=== PATIENT | male | born 1985 | race Caucasian/White ===

== ENCOUNTER 2021-05-01 19:44 | Emergency (ER) | payer BC, MEDICAID ==
[~2021-05-01] VITALS: Ht 172.7 cm; Wt 77.1 kg
[2021-05-01] MEDS ORDERED: OLANZAPINE 5 MG TABLET PO ONE (20:30)
[2021-05-01] MEDS ORDERED: LORAZEPAM 1 MG TABLET ONE (20:30)
[2021-05-01] MEDS ORDERED: LORAZEPAM 1 MG TABLET PO ONE (20:30)
[2021-05-01] MEDS ORDERED: OLANZAPINE 5 MG TABLET ONE (20:30)
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
[2021-05-01 20:42] LABS: BASOPHILS # (AUTO) 0.1 K/uL (0.0-0.2); BASOPHILS % (AUTO) 1.1 % (0.0-2.0); HEMATOCRIT 42 % (39-51); HEMOGLOBIN 14.3 g/dL (13.5-17.5); LYMPHOCYTES # (AUTO) 2.2 K/uL (0.8-4.8); LYMPHOCYTES % (AUTO) 27.3 % (20.0-44.0); MEAN CORPUSCULAR HGB CONC 34 g/dl (31.0-36.0); MEAN CORPUSCULAR VOLUME 87 fL (80-96); MONOCYTES # (AUTO) 0.8 K/uL (0.1-1.30); MONOCYTES % (AUTO) 9.3 % (2.0-12.0); NEUTROPHILS # (AUTO) 4.9 K/uL (1.8-8.9); NEUTROPHILS % (AUTO) 60.3 % (43.0-81.0); PLATELET COUNT (AUTO) 366 K/uL (150-450); RED BLOOD CELL COUNT(AUTO) 4.82 MIL/uL (4.5-6.0); WHITE BLOOD COUNT (AUTO) 8.1 K/uL (4.3-11.0)
[2021-05-01] MEDS ORDERED: diphenhydrAMINE HCL 50 MG/ML VIAL ONE (20:42)
[2021-05-01] MEDS ORDERED: HALOPERIDOL LACTATE INJ 5 MG/ML VIAL ONE ×2 (20:42→23:40)
[2021-05-01 20:45] LABS: BILIRUBIN,URINE Negative (NEGATIVE); COLOR,URINE YELLOW (YELLOW); LEUKOCYTE ESTERASE ,URINE Negative (NEGATIVE); NITRITE, URINE Negative (NEGATIVE); PH,URINE 5.5 (5.0-8.0); PROTEIN,URINE Negative (NEGATIVE); UGLUCOSE Negative (NEGATIVE); UROBILINOGEN,URINE 0.2 EU/dL (0.2)
[2021-05-01 20:48] LABS: CALCIUM, SERUM 8.9 mg/dL (8.5-10.1); CARBON DIOXIDE 24 mmol/L (21-32); CHLORIDE 106 mmol/L (98-107); CREATININE 0.8 mg/dL (0.6-1.3); GLUCOSE 128 mg/dL (74-106); POTASSIUM 3.7 mmol/L (3.5-5.1); SODIUM SERUM 144 mmol/L (136-145); UREA NITROGEN, BLOOD 15 mg/dL (7-18)
[2021-05-01 20:54] LABS: ALANINE AMINOTRANSFERASE 85 U/L (12-78); ALBUMIN 3.9 g/dL (3.4-5.0); ALCOHOL, BLOOD 156 mg/dL (0-0); ALKALINE PHOSPHATASE 107 U/L (46-116); ASPARTATE AMINOTRANSFERASE 92 U/L (15-37); BILIRUBIN,DIRECT 0.1 mg/dL (0.0-0.2); BILIRUBIN,TOTAL 0.2 mg/dL (0.2-1.0); TOTAL PROTEIN, SERUM 7.6 g/dL (6.4-8.2)
[2021-05-01 20:55] LABS: ACETAMINOPHEN < 2 ug/ml (10-30)
[2021-05-01] MEDS ORDERED: HALOPERIDOL LACTATE INJ 5 MG/ML VIAL IM ONE (21:00)
[2021-05-01] MEDS ORDERED: diphenhydrAMINE HCL 50 MG/ML VIAL IM ONE (21:00)
[2021-05-01 21:01] LABS: BACTERIA,URINE Rare /HPF (None Seen); SQUAMOUS EPITHELIAL CELL,UR Rare /HPF (None Seen); WBC,URINE 0-2 /HPF (0-3)
[2021-05-01] MEDS ORDERED: LORAZEPAM INJ 2 MG/ML VIAL ONE (22:35)
[2021-05-01] MEDS ORDERED: LORAZEPAM INJ 2 MG/ML VIAL IM ONE (23:00)
[2021-05-02] MEDS ORDERED: HALOPERIDOL LACTATE INJ 5 MG/ML VIAL IM ONE
--- NOTE | 2021-05-02 01:56 | NUR ---
pt previously aggressive, agitated, threatening staff. not responding to de escalation. after medication, pt at this time calm, resting. on monitor, vss. will cont to monitor for safety and behavior while in ER.
--- NOTE | 2021-05-02 08:02 | NUR ---
THE PATIENT SLEEPING. RESPONSIVE TO VERBAL STIMULI. RESPIRATION REGULAR AND UNLABORED. THE PATIENT IS IN NO APPARENT DISTRESS. WILL CONTINUE TO MONITOR THE PATIENT.
--- NOTE | 2021-05-02 10:41 | NUR ---
PATIENT A/OX4, VERBALLY RESPONSIVE, NO DISTRESS NOTED. DENIES ANY PAIN AT THIS TIME. PROVIDED WITH BREAKFAST. CALLED [facility] FOR CONSULT.
--- NOTE | 2021-05-02 11:54 | NUR ---
PATIENT ASLEEP IN BED, RESPIRATIONS EVEN AND UNLABORED. O DISTRESS NOTED AT THIS TIME
--- NOTE | 2021-05-02 11:55 | NUR ---
SW met with pt. bedside. However,pt. is sleeping and not rousable to verbal cues. SW will attempt to reassess pt. when he is awake.
--- NOTE | 2021-05-02 15:28 | NUR ---
PATIENT RESTING, NO DISTRESS NOTED. NEEDS ATTENDED. KEPT COMFORTABLE. PATIENT IS STILL ASLEEP.
--- NOTE | 2021-05-02 15:51 | NUR ---
PATIENT EASILY AROUSABLE. NO DISTRESS NOTED.
--- NOTE | 2021-05-02 16:10 | NUR ---
SS Consult: SS Consult requested for SI & Homelessness and drug use. The pt. is a 36- year old male who presents to ED with bizarre behavior. Upon SS consult, pt. states he has suicidal ideations for the past day with no plan. The pt. appears unkempt is A&O X2 with eye closed. Pt. is disorganized slightly disoriented and stated he was seeking medical Tx "to make these thoughts stop". Pt.'s mood is elevated. Pt. denies hallucinations and denies HI. AYLEEN offered pt. voluntary admission to a psych facility for treatment and pt. is agreeable. SW explored pt.'s mental health Hx. Pt. states he has been diagnosed with Bipolar Disorder in the past and is med non-compliant (Prozac, Trazodone and Lamictal). SW explored pt.'s living situation. Pt. states he has been homeless for a "some time" and has been sleeping in his car which is parked "near hospital". SW explored pt.'s drug & ETOH use. Patient was unable to answer question. 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 Pt. unable to provide additional history. Plan: SW referred pt. to [facility] for inpatient psychiatric treatment. Pt. signed homeless waiver and it was placed in the chart. AYLEEN provided pt. with homeless, and mental health resources and he accepted them : Pt. was unable to sign homelesswaiver and accepted homeless resources provide by AYLEEN. Year-round shelters: [place] [facility] [address] [place], [place] [phone] ; [facility] [address] [place] [address]; [place] [facility] [id number] [facility] [address] Winter Shelters: Nivia Elizondo Provider: [facility] [place] Address: [address], [address] # of Beds: 47 Population Served: [facility] 6 | [facility] Steffanie Hoffman [place] Provider: [facility] Address: [address] [facility], [address] # of Beds: 66 Population Served: [facility] [employer] [place] Provider: [facility] Address: [address] [facility], [address] # of Beds: 56 Population Served: [facility] Eduardo Elizondo Provider: /[facility] Address: [address] [facility], [address] # of Beds: 49 Population Served: [facility] 8 | [facility] Provider: First to Serve Address: [address] [facility]. [place], [address] # of Beds: 37 Population Served: [facility]ed Hygiene: [facility]: [address] [place] ; [facility] [address] [facility] ; [facility] [address] [place] . Food Resources: [facility] at [facility]- [address] [facility]; Meet Each Need with Dignity ([facility]) [address] [facility]; [facility] Food Pantry [address] [facility]; [facility] [address] [facility]. Mental Health resources provided: [facility] [address] [place], [place] [phone] ; [facility] [employer] [address] [facility] [address], [place], [place] [phone] ; Stephany Brock [facility] [address] [place] [address] ; [facility] [address] [place], [place] [phone] Healthcare Clinics: [facility] [address] [facility], [address] [place]. [place] ; [facility] [address] [facility] [address] [place] [address]; [facility] [address] [facility] [place] [place] [phone]) [phone] Counseling--Outpatient [facility] [address], [address] [place], [place] [address] (Specializes in in-depth psychotherapy for emotional distress: anxiety, depression, interpersonal conflicts, life transitions, childhood abuse) [facility] [address] [place], [place] [phone] (Assist with solving problem marital difficulties, separation & divorce, aging parents, & grief, chronic & terminal illness) [facility] [address] [place] [address] (Deal with loss & grief, anxiety, marital difficulties) Homebound/Mental Health Services [address] [facility] [address] [place] [address] (Provide in-home mental services to people who are incapable of leaving their homes) [facility]eds of the Elderly Senior Service/Resource Center [address] [place] [address] [facility] [address] [place], [place] [address] PSYCHIATRIC OUTPATIENT SERVICES [facility] Partial Hospitalization and Intensive Outpatient Program (Managed Care and [place] Only)[address] Critical access hospital [phone] [facility] Partial Hospitalization and Outpatient Noegvny7[address] [facility] [address] [place], [place] [phone] [facility] Oho[address] [facility] [address] [place], [place] [phone] [facility] Partial Hospitalization and Outpatient Kdldhlc92652 [place], [phone] Substance Abuse resources provided included: [facility] Substance Abuse Self-Helpline (SAS) ; [facility] [address] [facility]. [place] [address] ; [facility] [address] [place] [address] ; [facility] [address] [place] [address] ; [facility]ically [facility] [address] [facility] [address] ; [facility] [address] [facility] [address] ; [facility] [address] [facility] [phone] ; [facility] Substance Abuse Helpline(SAS)[facility] ; [facility] Family [facility] ; [facility]; [facility] [place]; [facility] [place]; [facility] Dustin Lopez; [facility]; [facility]; [facility] [place]; [facility]'s [place], [facility]. [place]; Alcoholics Anonymous -SFV; Eu-Vpzr-Ahhawim ; Marijuana Anonymous -SFV; Narcotics Anonymous [email or web address].[email or web address];
--- NOTE | 2021-05-02 16:11 | NUR ---
ED staff to fax clinicals to [facility] [[address] [place] [address] FAX:[phone]] for inpatient psychiatric treatment.
--- NOTE | 2021-05-02 16:14 | NUR ---
[facility]
--- NOTE | 2021-05-02 16:19 | NUR ---
PER MASHA AT INTAKE CALL AFTER 5553
--- NOTE | 2021-05-02 20:00 | NUR ---
PATIENT IN BED SLEEPING, EASY TO AROUSE. PATIENT VSS. PATIENT CONNECTED TO AIRCRAFT MECHANIC STRUCTURES AND POX. WILL CONTINUE TO MONITOR PT.
[2021-05-02] MEDS ORDERED: OLANZAPINE 10 MG VIAL IM ONE (23:30)
[2021-05-03] MEDS ORDERED: OLANZAPINE 10 MG VIAL IM ONE (00:51)
[2021-05-03] MEDS ORDERED: LORAZEPAM INJ 2 MG/ML VIAL ONE (01:48)
[2021-05-03] MEDS ORDERED: LORAZEPAM INJ 2 MG/ML VIAL IM ONE (02:00)
--- NOTE | 2021-05-03 05:00 | NUR ---
PATIENT IN BED RESTING IN NO ACUTE DISTRESS. PATIENT PROVIDED WITH URINAL. WILL CONTINUE TO MONITOR.
--- NOTE | 2021-05-03 08:00 | NUR ---
FOLLOWED UP WITH [facility] RE: PATIENT'S CLINICALS, [facility] THEY NEVER RECEIVED IT, WILL REFAX. PATIENT ASLEEP AT THIS TIME.
--- NOTE | 2021-05-03 08:24 | NUR ---
[facility]
--- NOTE | 2021-05-03 10:26 | NUR ---
PER SO VICTOR HUGO INTAKE STILL REVIEWING PAPERS
--- NOTE | 2021-05-03 10:54 | NUR ---
PATIENT WAS REEVALUATED BY ER PHYSICIAN DR. WINCHESTER, PER PATIENT HE'S NO LONGER SUICIDAL AND HE PREFERS TO GO TO HIS FRIENDS HOUSE. [employer]OR EXPRESS CLERK CALLED FOR ANOTHER CONSULT. PATIENT IS A/OX4, IN NO DISTRESS.
--- NOTE | 2021-05-03 11:13 | NUR ---
SS Note: SS requested to assess for SI. Upon consult, pt denied SI. Pt stated that he will be D/C to self and will use public transportation. Pt was previously provided homeless and mental health resources by AYLEEN Schneider. Pt's homeless waiver has been signed and filed in the pt's chart. Pt is alert and oriented x4. No further SS intervention at this time, however, SW will remain available as needed.
--- NOTE | 2021-05-03 11:29 | NUR ---
Patient a/ox4, ambulatory with steady gait, no distress noted. Provided with clothes and food. Patient discharged to home in stable condition. Written and verbal after care instructions given. Patient verbalizes understanding of instruction.
[2021-05-03 11:30] VITALS: BP 131/64
== END 2021-05-03 11:45 | disposition home or self-care (01) ==
LOC: ER 19:47 → EDBD 19:47 → ER 05-03 11:45
DX: F19.10 Other psychoactive substance abuse, uncomplicated (principal); F10.129 Alcohol abuse with intoxication, unspecified; Y90.6 Blood alcohol level of 120-199 mg/100 ml; F31.9 Bipolar disorder, unspecified; Z78.1 Physical restraint status; Z59.0 Homelessness
CPT/HCPCS: 36415; 80048; 80076; 80143; 80307; 80320; 81001; 85025; 87426; 96372 ×4; 99291; C9803; J1200; J1630 ×2; J2060 ×2; J3490; G0480